=== PATIENT | female | born 1995 | race Caucasian/White ===

== ENCOUNTER 2020-08-10 11:34 | Outpatient (CLI) | payer BC ==
--- NOTE | 2020-08-10 14:09 | RAD ---
EXAM: RIGHT FOOT THREE VIEWS: 08/10/20 HISTORY: Bilateral lower leg edema. FINDINGS: There is some diffuse soft tissue swelling and fullness of the lower leg, ankle and foot. No fracture , dislocation, or other acute osseous process. IMPRESSION: Soft tissue swelling without acute fracture or dislocation. POS: OFF
--- NOTE | 2020-08-10 14:11 | RAD ---
LEFT FOOT 3 VIEWS: Date: 08/10/2020 HISTORY: Bilateral lower leg edema. FINDINGS: Minimal diffuse soft tissue swelling of the visualized lower leg, ankle, and foot. No fracture, dislo cation, or other significant acute osseous process. IMPRESSION: Soft tissue swelling without an acute process. POS: OFF
== END 2020-08-10 11:35 | disposition home or self-care (01) ==
LOC: BICRAD 11:34
PROVIDERS: ATTEND Physician Assistant Medical
DX: R60.0 Localized edema (principal); M79.89 Other specified soft tissue disorders

== ENCOUNTER 2022-03-26 16:53 | Outpatient (CLI) | payer BC ==
[2022-03-26 18:04] LABS: BHCG - Serum Negative (NEGATIVE); Pregs Control Background? CLEAR/WHITE (CLR/WHITE); Pregs Control Bar Appear? YES (CONTROL BAR)
[2022-03-27 07:41] LABS: SARS-CoV-2 PCR by NAA Not Detected (NotDetected)
== END 2022-03-26 16:54 | disposition home or self-care (01) ==
LOC: LABBT 16:53
PROVIDERS: ATTEND Plastic Surgery
DX: Z01.812 Encounter for preprocedural laboratory examination (principal); Z20.822 Contact with and (suspected) exposure to COVID-19
CPT/HCPCS: 84703; U0003; U0005

== ENCOUNTER 2022-03-29 09:59 | Day surgery (SDC) | payer BC ==
[2022-03-28 13:59] VITALS: BMI 34.1
[2022-03-29] MEDS ORDERED: Sodium Chloride 0.9% 100 ML ONE (10:36)
[2022-03-29] MEDS ORDERED: CEFAZOLIN 2 GM VIAL ONE (10:36)
[2022-03-29] MEDS ORDERED: Heparin 5,000 UNITS/ML VIAL ONE (10:37)
[2022-03-29] MEDS ORDERED: Lidocaine 1% MPF 2 ML VIAL ONE (10:37)
[2022-03-29] MEDS ORDERED: fentaNYL Citrate/PF 100 MCG/2 ML SYRINGE ONE ×2 (11:33→11:34)
[2022-03-29] MEDS ORDERED: Famotidine/PF 20 mg/2ml Vial ONE ×2 (11:33→12:00)
[2022-03-29] MEDS ORDERED: Meperidine HCl/PF 25 MG/ML VIAL ONE (11:34)
[2022-03-29] MEDS ORDERED: SUGAMMADEX SODIUM 200 MG/2 ML VIAL ONE (11:34)
[2022-03-29] MEDS ORDERED: EPINEPHrine 1 MG/ML AMP ONE (11:35)
[2022-03-29] MEDS ORDERED: Bupivacaine 0.25% HCL 30 ML VIAL ONE (11:35)
[2022-03-29] MEDS ORDERED: Neomycin-Polymyxin 1 ML AMP ONE (11:39)
[2022-03-29] MEDS ORDERED: Lidocaine 1% (PF) 30 ML VIAL ONE (11:39)
[2022-03-29] MEDS ORDERED: Midazolam HCl 2 mg/2 ml Vial ONE (12:00)
[2022-03-29] MEDS ORDERED: PHENYLEPHRINE-NS 100 MCG/ML 10 ML SYRINGE ONE (12:15)
[2022-03-29] MEDS ORDERED: PROPOFOL 200 MG/20 ML VIAL ONE (12:15)
[2022-03-29] MEDS ORDERED: Lidocaine 1% PF 5 ML VIAL ONE (12:15)
[2022-03-29] MEDS ORDERED: Rocuronium Bromide 10 MG/ML (10ML VIAL) ONE (12:15)
[2022-03-29] MEDS ORDERED: Metoclopramide HCl 10 MG/2 ML VIAL ONE (12:15)
[2022-03-29] MEDS ORDERED: Dexamethasone 20 MG/5 ML VIAL ONE (12:15)
[2022-03-29] MEDS ORDERED: Fentanyl 100 MCG/2 ML VIAL ONE (17:07)
[2022-03-29] MEDS ORDERED: Ketorolac Tromethamine 30 MG/ML VIAL ONE (17:11)
== END 2022-03-29 18:20 | disposition home or self-care (01) ==
LOC: SDC 09:59
PROVIDERS: ATTEND Plastic Surgery
PROC: 0HBV0ZZ Excision of Bilateral Breast, Open Approach (ICD-10-PCS; principal; 2022-03-29)
DX: N62 Hypertrophy of breast (principal); F17.210 Nicotine dependence, cigarettes, uncomplicated; Z86.16 Personal history of COVID-19; Z79.899 Other long term (current) drug therapy
CPT/HCPCS: 88305; J0171; J1100; J1644; J1885; J2001; J2175; J2250; J2704; J2765; J3010; J3370; J3490; S0020; S0028

== ENCOUNTER 2022-03-31 21:22 | Emergency (ER) | payer BC ==
[~2022-03-31 21:22] MED LIST: Iopamidol 370 76% 100 ML VIAL ONE
[2022-03-31 21:57] LABS: INR-International Normal Ratio 0.9; PTT 29.1 sec (22.9-36.1); Prothrombin Time 12.4 sec (12.0-14.7)
[2022-03-31 22:07] LABS: #Basophils 0.1 thou/uL (0.0-0.2); #Eosinphils 0.2 thou/uL (0.0-0.7); #Lymphocytes 2.6 thou/uL (1.20-3.40); #Monocytes 0.8 thou/uL (0.11-0.59); #Neutrophils 7.5 thou/uL (1.40-6.50); %Basophils 0.6 % (0.0-1.0); %Eosinophils 1.9 % (0.0-10.0); %Lymphocytes 23.4 % (21.0-51.0); %Monocytes 6.7 % (0.0-10.0); %Neutrophils 67.4 % (42.0-75.0); Hemoglobin 13.2 g/dL (12.0-16.0); Mean Corpuscular HGB CONC 34.6 g/dL (32.0-36.0); Mean Corpuscular Hemoglobin 30.7 pg (27.0-31.0); Mean Corpuscular Volume 88.6 fL (78.0-98.0); Mean Platelet Volume 8.4 fL (7.4-10.4); Platelet Count 220 thou/uL (130-400); RBC Distribution Width 12.3 % (11.5-14.5); White Blood Cell (WBC) Count 11.2 thou/uL (4.8-10.8)
[2022-03-31 22:27] LABS: ALT (SGPT) 12 U/L (8-55); AST (SGOT) 13 U/L (5-34); Albumin 3.8 g/dL (3.5-5.0); Alkaline Phosphatase 113 U/L (40-110); Anion Gap 14 mmol/L (10-20); BUN (Urea Nitrogen) 12 mg/dL (7.0-18.7); Bilirubin, Total 0.4 mg/dL (0.2-1.2); Calc. Creatinine Clearance 0 mL/min (70-130); Calcium 8.4 mg/dL (7.8-10.44); Carbon Dioxide 23 mmol/L (22-29); Chloride 104 mmol/L (98-107); Globulin 3.2 g/dL (2.4-3.5); Glucose 130 mg/dL (70-105); Potassium 3.9 mmol/L (3.5-5.1); Sodium 137 mmol/L (136-145)
[2022-03-31 22:29] LABS: Bilirubin Negative (Negative); Blood, Urine Negative (Negative); Clarity Clear (Clear); Glucose, Urine (Dipstick) Normal (Negative); Ketone, Urine Trace mg/dL (Negative); Leukocyte 25 Leu/uL (Negative); Nitrite Negative (Negative); Protein, Urine (Dipstick) Negative (Neg-Trace); RBC/HPF 0-3 HPF (0-3); Specific Gravity, Urine 1.021 (1.002-1.036); Squamous Epithelial 0-3 HPF (0-3); WBC/HPF 0-3 HPF (0-3); pH, Urine 6.5 (5.0-9.0)
[2022-03-31 22:33] LABS: Bacteria/HPF 2+ HPF (None Seen)
[2022-03-31] MEDS ORDERED: Fentanyl 100 MCG/2 ML VIAL ONE (23:01)
[2022-03-31] MEDS ORDERED: Ketorolac Tromethamine 30 MG/ML VIAL ONE (23:02)
== END 2022-04-01 00:32 | disposition home or self-care (01) ==
LOC: ERS 21:22
DX: R50.82 Postprocedural fever (principal)
CPT/HCPCS: 36415; 71045; 71275; 80053; 81003; 81015; 83605; 85025; 85610; 85730; 87040; 87086; 93005; 94760; 96374; 96375; J1885; J3010; Q9967